=== PATIENT | male | born 1980 | race Caucasian/White ===

== ENCOUNTER 2016-06-30 19:35 | Emergency (ER) | payer SELFPAY ==
[2016-06-30] MEDS ORDERED: KETOROLAC TROMETHAMINE 60 MG/2 ML SDV IM ONE (23:47)
--- NOTE | 2016-07-01 00:14 | ER Document Report ---
ED General - General Chief Complaint: Urinary Problem Stated Complaint: ABDOMINAL PAIN Time Seen by Provider: 06/30/16 23:43 Notes: Patient is a 36-year-old male who presents with complaints of pain and burning whenever he urinates and also pain in the right lower quadrant and suprapubic region of his abdomen. No pain in his testicle region. No history of kidney stones. No abnormal discharge from the penis. Patient is sexually active. No fevers. No vomiting. No diarrhea. No other complaints at this time. TRAVEL OUTSIDE OF THE [place] IN LAST 30 DAYS: No - Related Data Allergies/Adverse Reactions: No Known Allergies Allergy (Verified 12/10/15 20:57) Past Medical History - Social History Smoking Status: Current Every Day Smoker Chew tobacco use (# tins/day): No Frequency of alcohol use: Social Drug Abuse: None Family History: Reviewed & Not Pertinent Patient has suicidal ideation: No Patient has homicidal ideation: No Renal/ Medical History: Denies: Hx Peritoneal Dialysis Surgical Hx: Negative - Immunizations Hx Diphtheria, Pertussis, Tetanus Vaccination: Yes - unknown last Review of Systems - Review of Systems Notes: My Normal Review Basic REVIEW OF SYSTEMS: CONSTITUTIONAL : Denies fever, chills, or sweats. Denies recent illness. RESPIRATORY: Denies cough, cold, or chest congestion. Denies shortness of breath, difficulty breathing, or wheezing. GASTROINTESTINAL: RLQ and suprapubic pain with urinating GENITOURINARY: Dysuria MUSCULOSKELETAL: Denies neck or back pain or joint pain or swelling. SKIN: Denies rash or skin lesions. NEUROLOGICAL: Denies altered mental status or loss of consciousness. Denies headache. Denies weakness or paralysis or loss of use of either side. Denies problems with gait or speech. Denies sensory or motor loss. ALL OTHER SYSTEMS REVIEWED AND NEGATIVE. Physical Exam - Vital signs Vitals: Temp Pulse Resp BP Pulse Ox 98.3 F 83 16 110/73 93 06/30/16 19:41 06/30/16 19:41 06/30/16 19:41 06/30/16 19:41 06/30/16 19:41 - Notes Notes: General Appearance: Well nourished, alert, cooperative, no acute distress, moderate obvious discomfort. Vitals: reviewed, See vital signs table. Head: no swelling or tenderness to the head Eyes: PERRL, EOMI, Conjuctiva clear Mouth: No decreasd moisture Lungs: No wheezing, No rales, No rhonci, No accessory muscle use, good air exchange bilaterally. Heart: Normal rate, Regular rythm, No murmur, no rub Abdomen: Normal BS, soft, No rigidity, No reproducible pain to palpation, No guarding, no rebound, no abdominal masses, no organomegaly genital: no redness or swelling to urethral meatus. No discharge from meatus Extremities: strength 5/5 in all extremities, good pulses in all extremities, no swelling or tenderness in the extremities, no edema. Skin: warm, dry, appropriate color, no rash Neuro: speech clear, oriented x 3, normal affect, responds appropriately to questions. Course - Vital Signs Vital signs: Temp Pulse Resp BP Pulse Ox 98.1 F 80 20 118/70 94 06/30/16 23:33 06/30/16 23:33 06/30/16 23:33 06/30/16 23:33 06/30/16 23:33 - Laboratory Laboratory results interpreted by me: 06/30/16 23:35 Urine Protein 30 H Urine Blood MODERATE H Ur Leukocyte Esterase LARGE H Urine Ascorbic Acid 40 H - Transfer of Care Notes: 07/01/16 01:41 Patient has what appears to be urinary tract infection on urinalysis. This is the first 1 is ever had. I informed him of the significant other that if he develops another one in the future he may need referral to urologist. Patient will be given a dose of Rocephin. I did inform him that most urinary tract infections the matter either related sexually transmitted diseases or prostatitis. He really has no pain in the area of his prostate. He adamantly denies any chance of sexually transmitted disease. I informed him that we still treated up front for possible STDs and he is okay with this. I have given him a dose of Rocephin as well as a dose of azithromycin. Will place him on Keflex. I will send his urine for culture. His urine has been sent for gonorrhea and chlamydia but it will take several hours to come back. Patient is understanding of this. I informed him we will call him of his results were positive. Patient encouraged to return to ER if he has fevers, worsening with symptoms, or feels unwell. Patient agrees with plan and will be discharged home. Dictation of this chart was performed using voice recognition software; therefore, there may be some unintended grammatical errors. Discharge - Discharge Clinical Impression: Hematuria UTI (urinary tract infection) Qualifiers: Urinary tract infection type: acute cystitis Hematuria presence: with hematuria Qualified Code(s): N30.01 - Acute cystitis with hematuria Condition: Good Disposition: HOME, SELF-CARE Additional Instructions: URINARY TRACT INFECTION: Your evaluation indicates that you have a urinary tract infection. This is due to germs growing in the bladder. This is a common problem. This infection usually responds quickly to antibiotics. Your antibiotic should be taken exactly as prescribed. Drink plenty of fluids -- three to four quarts a day. Occasionally, a bladder anesthetic will be prescribed to help stop the feeling of urgency until the antibiotic has a chance to clear the infection. This may cause your urine to be dark orange. Certain urine infections require a culture. If the doctor obtained a culture, the results will be back in two days. You should call to see if a change in treatment is needed. A repeat urinalysis after you finish treatment is often recommended. The physician will let you know if further testing is required. Call the doctor if you develop fever, chills, flank pain, inability to urinate, or blood in the urine. ANTIBIOTIC THERAPY: You have been given an antibiotic prescription. It's important that you take all the medication, unless instructed otherwise by your physician. Failure to complete the entire course can result in relapse of your condition. Common side effects of antibiotics include nausea, intestinal cramping, or diarrhea. Women may develop vaginal yeast infections, and babies can get yeast (thrush) in the mouth following the use of antibiotics. Contact your physician if you develop significant side effects from this medication. Allergy to this antibiotic can result in hives, wheezing, faintness, or itching. If symptoms of allergy occur, stop the medication and call the doctor. CEPHALEXIN: The antibiotic you've been prescribed is a member of the cephalosporin class. This type of antibiotic covers a wide variety of infections, including those of the skin, lungs, and urinary tract. It's useful for staph infections. This antibiotic is slightly similar to the penicillin family. In rare cases , a person who is allergic to penicillin will also be allergic to this medication. If you have had a severe allergic reaction to penicillin, and have not taken this antibiotic since that time, notify your doctor. Antibiotics which cover many germs ("broad spectrum" antibiotics) are more likely to cause diarrhea or "yeast" infections. Women prone to vaginal yeast problems may suffer an attack after taking this antibiotic. In infants, oral thrush (white spots "stuck" on the cheek) or yeast diaper rash may result. See your doctor if these problems occur. Call at once if you develop itching, hives , shortness of breath, or lightheadedness. URINARY ANESTHETIC AGENT: You have been given a medication (Pyridium) for urinary tract discomfort. This medicine numbs the lining of the bladder and urethra, resulting in less pain, burning, and urgency. You may take it as needed, according to instructions. When the symptoms resolve, you can stop this medication (be sure to continue any other medications the doctor has given you). This medicine turns the urine a dark orange. It may stain underwear. Occasionally, it can cause nausea. Return for evaluation if there are any unexpected effects, such as itching, hives, or shortness of breath. FOLLOW-UP CARE: If you have been referred to a physician for follow-up care, call the physician s office for an appointment as you were instructed or within the next two days. If you experience worsening or a significant change in your symptoms, notify the physician immediately or return to the Emergency Department at any time for re-evaluation. Please follow up with a doctor in 4 days to have your urine rechecked to make sure it is clearing the infection and blood. You need to be referred to a urologist if you ever have a recurrent urinary tract infection as this is a sign that there is something anatomically wrong such as ureteral reflux. Please return to the ER if you have fevers, vomiting or feel that your symptoms are not improving after 3 days. Prescriptions: Cephalexin Monohydrate [Keflex 500 mg Capsule] 500 mg PO BID #20 capsule Phenazopyridine HCl [Pyridium 200 mg Tablet] 200 mg PO TID #15 tablet Forms: Return to Work
[2016-07-01 00:26] LABS: APPEARANCE,URINE CLOUDY; BILIRUBIN,URINE NEGATIVE (NEGATIVE); GLUCOSE, URINE NEGATIVE (NEGATIVE); KETONES,URINE NEGATIVE (NEGATIVE); LEUKOCYTE ESTERASE,URINE LARGE (NEGATIVE); NITRITE,URINE NEGATIVE (NEGATIVE); PROTEIN,URINE 30 mg/dL (NEGATIVE); URINE SPECIFIC GRAVITY 1.023; UROBILINOGEN,URINE NEGATIVE mg/dL (<2.0)
[2016-07-01 01:31] LABS: CHLAM PCR NOT DETECTED (NOT DETECT)
[2016-07-01] MEDS ORDERED: LIDOCAINE 1% INJ-PF (10 MG/ML) 30 ML SDV INFIL ONE (01:34)
[2016-07-01] MEDS ORDERED: CEFTRIAXONE INJ 1000 MG VIAL IM ONE (01:34)
[2016-07-01] MEDS ORDERED: PHENAZOPYRIDINE HCL 200 MG TABLET PO ONE (01:34)
[2016-07-01] MEDS ORDERED: AZITHROMYCIN 250 MG TABLET PO ONE (01:35)
[2016-07-01 02:42] VITALS: BP 117/74
== END 2016-07-01 02:36 | disposition home or self-care (01) ==
LOC: ER 19:35
DX: N30.01 Acute cystitis with hematuria (principal); R10.31 Right lower quadrant pain; F17.200 Nicotine dependence, unspecified, uncomplicated
CPT/HCPCS: 99284; 96372; 81001; 87491; 87591; 76380; J1885; J3490 ×2; J0696

== ENCOUNTER 2016-10-26 14:19 | Emergency (ER) | payer SELFPAY ==
--- NOTE | 2016-10-26 14:48 | ER Document Report ---
ED General - General Chief Complaint: Foot Pain Stated Complaint: RIGHT FOOT INJURY Time Seen by Provider: 10/26/16 14:46 Mode of Arrival: Wheelchair Information source: Patient Notes: Patient is a 36 year old male who presents with right foot pain and swelling that started last night. He states he was lifting weights and the rope that the 35# weight was on broke causing the weight to drop on his foot. He was not wearing shoes. He tried to ambulate on this foot at home but states the pain and swelling worsened overnight. He has not taken any medication for this. Endorses associated ecchymosis but denies any numbness or tingling. TRAVEL OUTSIDE OF THE [place] IN LAST 30 DAYS: No - Related Data Allergies/Adverse Reactions: No Known Allergies Allergy (Verified 10/26/16 14:31) Past Medical History - General Information source: Patient - Social History Smoking Status: Current Every Day Smoker Frequency of alcohol use: None Drug Abuse: None Family History: Reviewed & Not Pertinent Renal/ Medical History: Denies: Hx Peritoneal Dialysis - Immunizations Hx Diphtheria, Pertussis, Tetanus Vaccination: Yes - unknown last Review of Systems - Review of Systems Constitutional: No symptoms reported EENT: No symptoms reported Cardiovascular: No symptoms reported Respiratory: No symptoms reported Gastrointestinal: No symptoms reported Genitourinary: No symptoms reported Male Genitourinary: No symptoms reported Musculoskeletal: See HPI Skin: No symptoms reported Hematologic/Lymphatic: No symptoms reported Neurological/Psychological: No symptoms reported Physical Exam - Vital signs Vitals: Temp Pulse Resp BP Pulse Ox 98.7 F 82 18 122/73 96 10/26/16 14:30 10/26/16 14:30 10/26/16 14:30 10/26/16 14:30 10/26/16 14:30 - Notes Notes: PHYSICAL EXAM: CONSTITUTIONAL: Alert and oriented, well-appearing and in no acute distress. HENT: Normocephalic, atraumatic. Moist mucous membranes. EYES: Pupils equal round and reactive to light, EOM intact. Sclera anicteric, conjunctiva are normal. No entrapment. HEART: Regular rate and rhythm without murmurs. LUNGS: CTAB and equal. No wheezes, rales or rhonchi. EXTREMITIES: right foot - tender to palpation over proximal dorsal surface with localized edema and ecchymosis, ROM of ankle and toes intact. No pitting edema. No cyanosis. Cap Refill <3 seconds. distal pulses intact. NEURO: Cranial nerves grossly intact. Normal sensory/motor exams. PSYCH: Normal mood, normal affect. SKIN: Warm and dry. Normal turgor. No rashes or lesions noted. Course - Re-evaluation Re-evalutation: 10/26/16 14:48 Patient seen and examined. Will order xrays and give PO pain medication. 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 Discussed results with patient. At this time, will discharge with return precautions and follow-up recommendations. Verbal discharge instructions given at the bedside and opportunity for questions given. Medication warnings reviewed. Patient is in agreement with this plan and has verbalized understanding of return precautions and the need for primary care follow-up in the next 24-72 hours. - Vital Signs Vital signs: Temp Pulse Resp BP Pulse Ox 98.7 F 82 18 122/73 96 10/26/16 14:30 10/26/16 14:30 10/26/16 14:30 10/26/16 14:30 10/26/16 14:30 - Diagnostic Test Radiology reviewed: Image reviewed, Reports reviewed Discharge - Discharge Clinical Impression: Contusion of right foot, initial encounter Condition: Stable Disposition: HOME, SELF-CARE Additional Instructions: Contusion Your injury has resulted in a contusion -- a crushing of the deep tissues. No injury to important structures was detected during the physician's exam. Contusions vary in the amount of pain they cause, and in the length of time required for healing. Typically, the area will become bruised, and will remain painful to touch for two or three weeks. However, most patients are back to working and playing within a few days. After the initial period of rest and cold-packs, your symptoms (together with the doctor's recommendations) will determine how rapidly you can get back to full activity. Usually this means "do what feels okay, but don't do things that hurt." If re-examination was recommended, it's important to follow up as instructed. Call the doctor or return any time if pain increases, if swelling becomes severe, if you develop numbness or weakness in an injured extremity, or if any other alarming symptoms occur. Take medication as directed. Alternate ice/heat as needed for swelling. Prescriptions: Naproxen [Naprosyn 250 mg Tablet] 250 mg PO BID #20 tablet Forms: Return to Work
[2016-10-26] MEDS ORDERED: NAPROXEN 375 MG TABLET PO ONE (15:12)
--- NOTE | 2016-10-26 15:56 | RADIOLOGY REPORT (SQ) ---
EXAM DESCRIPTION: FOOT RIGHT COMPLETE COMPLETED DATE/TIME: 10/26/2016 3:29 pm REASON FOR STUDY: pain, dropped 35# weight COMPARISON: Right foot films 03/17/2007, 07/04/2007, 02/18/2011, 03/03/2011 NUMBER OF VIEWS: Three views. TECHNIQUE: AP, lateral and oblique radiographic images acquired of the right foot. LIMITATIONS: None. FINDINGS: MINERALIZATION: Normal. 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 No bony bridging ca llus. No altered bony density worrisome for avascular necrosis of the fracture fragment. Remainder of the bones of the right foot are otherwise unremarkable JOINTS: Hallux valgus deformity great toe. Mild bony spurring along the dorsal aspect 2nd tarsometat arsal joint SOFT TISSUES: No soft tissue swelling. No foreign body. OTHER: No other significant finding. 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 Initial injury 07/04/2007. TECHNICAL DOCUMENTATION: JOB ID: [id number] [employer]- All Rights Reserved
[2016-10-26 16:33] VITALS: BP 132/56
== END 2016-10-26 16:34 | disposition home or self-care (01) ==
LOC: ER 14:19
DX: S90.31XA Contusion of right foot, initial encounter (principal); F17.200 Nicotine dependence, unspecified, uncomplicated; W20.8XXA Other cause of strike by thrown, projected or falling object, initial encounter; Y93.B3 Activity, free weights
CPT/HCPCS: 99283; 73630; J3490

== ENCOUNTER 2017-05-13 18:56 | Observation (INO) | payer SELFPAY ==
[2017-05-13] MEDS ORDERED: ONDANSETRON HCL INJ/PF 4 MG/2 ML SDV IV ONE (20:09)
[2017-05-13] MEDS ORDERED: NORMAL SALINE 1000 ML 1,000 ML IV ONE (20:09)
[2017-05-13] MEDS ORDERED: KETOROLAC TROMETHAMINE INJ/PF 30 MG/1 ML SDV IV ONE (20:09)
--- NOTE | 2017-05-13 20:36 | ER Document Report ---
ED General - General Chief Complaint: Abdominal Pain Stated Complaint: STOMACH PAIN Time Seen by Provider: 05/13/17 20:04 Notes: Patient is a 37 year old male without past medical history who presents with 4- 5 hours of severe, stabbing, constant upper abdominal pain with associated nausea. Patient states that the symptoms started shortly after eating Easter ham. Have been unchanged since that time. He states he has tried over-the- counter antacids without any improvement. Any attempt at drinking or eating worsens the pain. Patient reports that he has intermittently had mild symptoms similar to this in the past over the past 1 year since being diagnosed with gallstones. However he states he has never had pain or nausea to this degree of intensity. He has not seen his primary care doctor regarding today's concerns. He denies any fever or constitutional symptoms. No dysuria or lower abdominal pain. No chest pain or shortness of breath. TRAVEL OUTSIDE OF THE [place] IN LAST 30 DAYS: No - Related Data Allergies/Adverse Reactions: No Known Allergies Allergy (Verified 05/13/17 18:56) Past Medical History - General Information source: Patient - Social History Smoking Status: Current Every Day Smoker Chew tobacco use (# tins/day): No Frequency of alcohol use: Rare Drug Abuse: Marijuana Lives with: Spouse/Significant other Family History: Reviewed & Not Pertinent Patient has suicidal ideation: No Patient has homicidal ideation: No Renal/ Medical History: Denies: Hx Peritoneal Dialysis - Immunizations Hx Diphtheria, Pertussis, Tetanus Vaccination: Yes - unknown last Review of Systems - Review of Systems Notes: Constitutional: Negative for fever. HENT: Negative for sore throat. Eyes: Negative for visual changes. Cardiovascular: Negative for chest pain. Respiratory: Negative for shortness of breath. Gastrointestinal: Positive for abdominal pain and nausea Genitourinary: Negative for dysuria. Musculoskeletal: Negative for back pain. Skin: Negative for rash. Neurological: Negative for headaches, weakness or numbness. 10 point ROS negative except as marked above and in HPI. Physical Exam - Vital signs Vitals: Temp Pulse Resp BP Pulse Ox 98.2 F 55 L 16 133/74 H 97 05/13/17 19:19 05/13/17 19:19 05/13/17 19:19 05/13/17 19:19 05/13/17 19:19 Interpretation: Bradycardic Notes: PHYSICAL EXAMINATION: GENERAL: Appears moderately uncomfortable but no acute distress HEAD: Atraumatic, normocephalic. EYES: Pupils equal round and reactive to light, extraocular movements intact, sclera anicteric, conjunctiva are normal. ENT: nares patent, oropharynx clear without exudates. Moist mucous membranes. NECK: Normal range of motion, supple without lymphadenopathy LUNGS: Breath sounds clear to auscultation bilaterally and equal. No wheezes rales or rhonchi. HEART: Regular rate and rhythm without murmurs ABDOMEN: Soft, focal tenderness the right upper quadrant with positive Mckeon sign. Mild epigastric abdominal tenderness. No additional areas of localized tenderness. EXTREMITIES: Normal range of motion, no pitting or edema. No cyanosis. NEUROLOGICAL: No focal neurological deficits. Moves all extremities spontaneously and on command. PSYCH: Normal mood, normal affect. SKIN: Warm, Dry, normal turgor, no rashes or lesions noted. Course - Re-evaluation Re-evalutation: 05/13/17 20:35 Patient presents with epigastric and right upper quadrant abdominal pain with associated nausea but no vomiting. He has intermittently had similar symptoms over the past 1 year and was diagnosed with gallstones without evidence of acute cholecystitis approximately 1 year ago. On abdominal examination the patient has a positive Mckeon sign at the bedside and focal tenderness to the epigastrium as well. Differential diagnosis includes symptomatic lithiasis, acute cholecystitis, pancreatitis, acute hepatitis, or gastritis versus duodenitis. Will proceed with right upper quadrant ultrasound, labs, analgesic support, IV fluids and reassess patient after completion of the labs and imaging study. 05/13/17 22:41 Right upper quadrant ultrasound is consistent with acute cholecystitis which is my primary diagnostic concern. Labs otherwise unremarkable. I discussed with Dr. Quezada the surgeon control operator who has agreed to evaluate the patient. - Vital Signs Vital signs: Temp Pulse Resp BP Pulse Ox 97.4 F 51 L 16 98/45 L 97 05/14/17 03:51 05/14/17 03:51 05/14/17 03:51 05/14/17 03:51 05/14/17 03:51 - Laboratory Result Diagrams: 05/13/17 20:45 05/13/17 20:45 Laboratory results interpreted by me: 05/13/17 20:45 Carbon Dioxide 31 H Total Protein 6.0 L - Diagnostic Test Radiology reviewed: Reports reviewed Discharge - Discharge Clinical Impression: Acute cholecystitis Condition: Good Disposition: ADMITTED OBSERVATION Admitting Provider: Surgicalist Unit Admitted: Surgical Floor
[2017-05-13 21:07] LABS: ABSOLUTE EOSINOPHILS # (AUTO) 0.4 10^3/uL (0.0-0.6); ABSOLUTE LYMPHOCYTES (AUTO) 2.8 10^3/uL (0.5-4.7); ABSOLUTE MONOCYTES (AUTO) 0.7 10^3/uL (0.1-1.4); ABSOLUTE NEUT (AUTO) 6.1 10^3/uL (1.7-8.2); BASOPHILS % (AUTO) 0.5 % (0-2); EOSINOPHILS % (AUTO) 3.5 % (0-6); HEMATOCRIT 44.4 % (37.9-51.0); MEAN CORPUSCULAR HEMOGLOBIN 31.3 pg (27.0-33.4); MEAN CORPUSCULAR HGB CONC 33.7 g/dL (32.0-36.0); MEAN CORPUSCULAR VOLUME 93 fl (80-97); MONOCYTES % (AUTO) 6.8 % (3-13); PLATELET COUNT 257 10^3/uL (150-450); RED BLOOD COUNT 4.79 10^6/uL (4.35-5.55); RED CELL DISTRIBUTION WIDTH 13.5 % (11.5-14.0); SEGMENTED NEUTROPHILS % (AUTO) 61.2 % (42-78); TOTAL CELLS COUNTED % (AUTO) 100 %
[2017-05-13 21:17] LABS: ALANINE AMINOTRANSFERASE 44 U/L (21-72); ALBUMIN 4.2 g/dL (3.5-5.0); ALKALINE PHOSPHATASE 67 U/L (38-126); ANION GAP 8 (5-19); ASPARTATE AMINO TRANSFERASE 46 U/L (17-59); BILIRUBIN,DIRECT 0.2 mg/dL (0.0-0.4); BILIRUBIN,TOTAL 0.2 mg/dL (0.2-1.3); BLOOD UREA NITROGEN 16 mg/dL (7-20); CARBON DIOXIDE 31 mmol/L (22-30); CHLORIDE 103 mmol/L (98-107); GLUCOSE 94 mg/dL (75-110); LIPASE 83.6 U/L (23-300); POTASSIUM 4.9 mmol/L (3.6-5.0); SODIUM 141.8 mmol/L (137-145)
--- NOTE | 2017-05-13 21:20 | RADIOLOGY REPORT (SQ) ---
EXAM DESCRIPTION: U/S ABDOMEN LIMITED W/O DOP COMPLETED DATE/TIME: 05/13/2017 9:09 pm REASON FOR STUDY: upper abdominal pain COMPARISON: None. TECHNIQUE: Dynamic and static grayscale images acquired of the right upper quadrant and recorded on PACS. Additional selected color Doppler and spectral images recorded. LIMITATIONS: Study limited due to acoustical interference from fat or from air in the bowel. FINDINGS: PANCREAS: Obscured. LIVER: No masses. Echotexture normal. LIVER VASCULATURE: Normal directional flow of the main portal vein and hepatic veins. GALLBLADDER: Gallstones. Mild gallbladder wall thickening. ULTRASOUND-DETECTED KILGORE'S SIGN: Positive. INTRAHEPATIC DUCTS AND COMMON DUCT: CBD and intrahepatic ducts normal caliber. No filling defects. INFERIOR VENA CAVA: Normal flow. AORTA: No aneurysm. RIGHT KIDNEY: Normal size. Normal echogenicity. No solid or suspicious masses. No hydronephrosis. No calcifications. PERITONEAL CAVITY AND RIGHT PLEURAL SPACE: No ascites or effusions. OTHER: No other significant finding. IMPRESSION: GALLSTONES. MILD GALLBLADDER WALL THICKENING. REPORTED POSITIVE KILGORE SIGN. NO BILIA RY DILATION PER TECHNICAL DOCUMENTATION: JOB ID: [id number] [employer]- All Rights Reserved Reading location - IP/workstation name: [email or web address]
[2017-05-13 21:50] LABS: AMORPHOUS SEDIMENT,URINE TRACE /HPF
[2017-05-13 22:06] LABS: APPEARANCE,URINE CLEAR; BILIRUBIN,URINE NEGATIVE (NEGATIVE); COLOR,URINE STRAW; GLUCOSE, URINE NEGATIVE (NEGATIVE); KETONES,URINE NEGATIVE (NEGATIVE); PROTEIN,URINE NEGATIVE (NEGATIVE); URINE SPECIFIC GRAVITY 1.022
[2017-05-13 22:07] LABS: LEUKOCYTE ESTERASE,URINE NEGATIVE (NEGATIVE); NITRITE,URINE NEGATIVE (NEGATIVE); UROBILINOGEN,URINE NEGATIVE mg/dL (<2.0)
[2017-05-13] MEDS: MORPHINE SULFATE 10 MG/ML INJ IV PRN (22:18)
[2017-05-13] MEDS ORDERED: RINGERS SOLUTION,LACTATED 1,000 ML IV PRN (22:42)
[2017-05-13] MEDS ORDERED: NICOTINE 21 MG/24 HR PATCH.TD24 TD PRN (23:44)
[2017-05-14] MEDS ORDERED: INFLUENZA ADLT QUAD (36MOS+) 2017-18 VAC 0.5 ML SYR IM PRN (02:31)
[2017-05-14] MEDS: KETOROLAC TROMETHAMINE INJ/PF 30 MG/1 ML SDV IV PRN (02:36)
[2017-05-14] MEDS: CEFAZOLIN 1 GM/D5W RTU 1 GM/50 ML RTUPB IV SCH ×3 (06:26→18:46)
--- NOTE | 2017-05-14 06:54 | HISTORY AND PHYSICAL E ---
History and Physical NAME: JOSELYN RANKIN : 1980 AGE: 37Y ADMITTED: 05/13/2017 ROOM: 208 Patient seen at the request of Dr. Fenton CHIEF COMPLAINT: Gallstones. HISTORY OF PRESENT ILLNESS: The patient is a 37-year-old white male, previously healthy, with a known history of gallstones diagnosed over 1 year ago at [place], [place]. The patient was advised to undergo operative intervention, but he declined. Early on afternoon, he was cooking ham, had a slice of ham, and developed acute abdominal pain, right upper quadrant nausea. He presented to the emergency department complaining of abdominal pain. He was worked up by gallbladder ultrasound, which showed cholelithiasis, and gallbladder thickened wall. Surgery was consulted and he was advised admission. PAST MEDICAL HISTORY: None. PAST SURGICAL HISTORY: None. ALLERGIES: None. MEDICATIONS: None. FAMILY HISTORY: Noncontributory. SOCIAL HISTORY: The patient does smoke. REVIEW OF SYSTEMS: CONSTITUTIONAL: The patient denies. CARDIOVASCULAR: The patient denies. MUSCULOSKELETAL: The patient denies. Remainder of the review of systems unremarkable. PHYSICAL EXAMINATION: GENERAL: Patient examined in the emergency department, no acute distress. HEENT: Head normocephalic, atraumatic. Eyes without icterus. NECK: No adenopathy. LUNGS: Clear to auscultation bilaterally. NEUROLOGIC: Grossly intact in upper and lower extremities. ABDOMEN: Soft, minimally tender in the right upper quadrant. No peritoneal signs. Remainder of examination is unremarkable. LABORATORY PROFILE: CBC within normal limits. Electrolytes essentially within normal limits. Urinalysis unremarkable. Gallbladder ultrasound shows multiple gallstones, with thickening of the gallbladder wall. The common duct was interpreted as normal caliber. No other pathologic findings. IMPRESSION: 1. Symptomatic cholelithiasis with cholecystitis. 2. Smoker. RECOMMENDATIONS: The patient will be admitted, kept n.p.o. on IV fluids, and set up for interval laparoscopic cholecystectomy by Dr. Brand in the morning. Risks, benefits, and alternatives to the procedure were briefly reviewed with the patient. DICTATING PHYSICIAN: CHETAN HIRSCH M.D. [id number] PHY#: [id number] ID: [id number] JOB#: [id number] ACCT: [id number] cc:Belia APARICIO MD
[2017-05-14] MEDS: MORPHINE SULFATE 10 MG/ML INJ IV PRN ×3 (08:15→23:20)
[2017-05-14] MEDS ORDERED: FENTANYL CITRATE INJ/PF 100 MCG/2 ML AMPUL ONE ×2 (11:57→14:34)
[2017-05-14] MEDS ORDERED: MIDAZOLAM 2 MG/2 ML INJ ONE (11:57)
[2017-05-14] MEDS ORDERED: ACETAMINOPHEN 100 ML IV ONE (11:58)
[2017-05-14] MEDS ORDERED: PROPOFOL INJ 200 MG/20 ML VIAL IV ONE (11:58)
[2017-05-14] MEDS ORDERED: BUPIVACAINE HCL 0.25 % INJ/PF (2.5 MG/1 ML) 30 ML VIAL ONE (12:16)
[2017-05-14] MEDS ORDERED: MEPERIDINE HCL/PF INJ 25 MG/1 ML DISP.SYRIN IV PRN (13:33)
[2017-05-14] MEDS ORDERED: OXYCODONE-ACETAMINOPHEN 5-325 MG TABLET PO PRN ×2 (13:33)
[2017-05-14] MEDS ORDERED: FENTANYL CITRATE INJ/PF 100 MCG/2 ML AMPUL IV PRN ×3 (13:33)
[2017-05-14] MEDS ORDERED: DIPHENHYDRAMINE HCL 50 MG/ML VIAL IV PRN (13:33)
[2017-05-14] MEDS ORDERED: PROMETHAZINE HCL INJ 25 MG/1 ML VIAL IV PRN ×2 (13:33)
[2017-05-14] MEDS ORDERED: MORPHINE SULFATE 10 MG/ML INJ IV PRN (13:33)
[2017-05-14] MEDS ORDERED: LIDOCAINE 2% INJ-PF (20 MG/ML) 2 ML AMPUL ONE (14:52)
[2017-05-14] MEDS ORDERED: GLYCOPYRROLATE INJ 0.4 MG/2 ML VIAL ONE (14:52)
[2017-05-14] MEDS ORDERED: VECURONIUM BROMIDE INJ 10 MG VIAL IV ONE (14:52)
[2017-05-14] MEDS ORDERED: ONDANSETRON HCL INJ/PF 4 MG/2 ML SDV ONE (14:52)
[2017-05-14] MEDS ORDERED: DEXAMETHASONE SOD PHOSPHATE INJ 4 MG/1 ML VIAL ONE (14:52)
[2017-05-14] MEDS ORDERED: NEOSTIGMINE METHYLSULFATE 10 MG/10 ML VIAL ONE (14:52)
[2017-05-14] MEDS ORDERED: SUCCINYLCHOLINE CHLORIDE INJ 200 MG/10 ML VIAL ONE (14:52)
[2017-05-14] MEDS ORDERED: METOCLOPRAMIDE HCL INJ/PF 10 MG/2 ML SDV ONE (15:32)
[2017-05-14] MEDS ORDERED: OXYCODONE-ACETAMINOPHEN 5-325 MG TABLET ONE (15:32)
[2017-05-14] MEDS ORDERED: NORMAL SALINE 1000 ML 1,000 ML IV PRN (15:50)
[2017-05-14] MEDS ORDERED: KETOROLAC TROMETHAMINE INJ/PF 30 MG/1 ML SDV ONE (16:01)
--- NOTE | 2017-05-14 16:29 | OPERATIVE REPORT E ---
Operative Report NAME: JOSELYN RANKIN : 1980 AGE: 37Y DATE OF SURGERY: 05/14/2017 ROOM: 208 PREOPERATIVE DIAGNOSIS: ACUTE ON CHRONIC CALCULOUS CHOLECYSTITIS. POSTOPERATIVE DIAGNOSIS: ACUTE ON CHRONIC CALCULOUS CHOLECYSTITIS. OPERATION: Laparoscopic cholecystectomy. SURGEON: SAGE LOPEZ M.D. ANESTHESIA: General. INDICATION: This is a 37-year-old male with known gallstones. He came in with severe right upper quadrant pains associated with nausea and ultrasound revealed gallstones and inflammation of the gallbladder wall. DESCRIPTION OF PROCEDURE: After adequate general anesthesia, the patient was placed in the supine position and the abdomen prepped and draped in the usual sterile fashion. An appropriate time-out was called. An infraumbilical elliptical incision was made and the fascia identified and grasped with Christine clamps and divided within the Christine clamps. The fascia was then punctured with a Kitty clamp and dilated enough to be able to place a Liudmila trocar into the abdominal cavity. CO2 insufflated through the trocar site to a pressure of 15 mmHg. Three added trocars were placed. A 12 mm in the subxiphoid and two 5 mm in the right upper quadrant under direct vision. Next, the gallbladder was identified and noted to be thickened with mild edema. There was an adhesion of the omentum and this was bluntly lysed. The infundibulum was then grasped, clamped, and the cystic duct dissected. The cystic duct and cystic artery were then identified and after establishing the critical view, the cystic duct was then clipped with 2 clips on the proximal side and 1 clip towards the gallbladder side. It was then divided between the 2 clips closer to the gallbladder. The cystic artery was subsequently clipped and divided with Harmonic cara. The gallbladder was then taken off the liver bed with the use of the Harmonic cara. There was a small amount of leak from the gallbladder and bilious material noted. The grasper was then placed to control the leak and further completion of the dissection of the gallbladder was then performed with the use of the Harmonic cara. The gallbladder was then placed in an Endobag and pulled out through the umbilical port. There were stones noted in the gallbladder. Next, the liver bed was then inspected and irrigated, and no evidence of active bleeding noted. The small amount of gallbladder leak was then irrigated with saline using 2 L then suctioned out. Visual examination of the abdominal cavity was then performed and no evidence of any abnormality. The trocars were removed and no evidence of active bleeding along the trocar sites. The Garcia fascial defect was then closed with a elkthn-ui-wtxhy suture using #0 Vicryl. All the skin incisions were then closed with running subcuticular 4-0 Monocryl. Sterile Dermabond was used as dressing. The patient tolerated the procedure well. Needle, instrument, and sponge counts were all correct. Estimated blood loss was 10 mL. The patient then brought to the recovery room in satisfactory condition. DICTATING PHYSICIAN: SAGE LOPEZ M.D. [id number] PHY#: [id number] ID: [id number] JOB#: [id number] ACCT: [id number] cc:SAGE LOPEZ M.D. > MTDD
[2017-05-14] MEDS ORDERED: KETOROLAC TROMETHAMINE INJ/PF 30 MG/1 ML SDV INJ ONE (16:30)
[2017-05-14] MEDS: OXYCODONE-ACETAMINOPHEN 5-325 MG TABLET PO PRN (20:37)
[2017-05-15] MEDS: KETOROLAC TROMETHAMINE INJ/PF 30 MG/1 ML SDV IV PRN ×2 (00:39→06:44)
[2017-05-15] MEDS: CEFAZOLIN 1 GM/D5W RTU 1 GM/50 ML RTUPB IV SCH ×2 (02:29→09:29)
[2017-05-15] MEDS: OXYCODONE-ACETAMINOPHEN 5-325 MG TABLET PO PRN (03:49)
[2017-05-15 12:11] VITALS: BP 110/53
== END 2017-05-15 13:58 | disposition home or self-care (01) ==
LOC: ER 18:56 → EH 23:07 → 2N 05-14 01:27
PROVIDERS: ATTEND Surgery
PROC: 0FT44ZZ Resection of Gallbladder, Percutaneous Endoscopic Approach (ICD-10-PCS; principal; 2017-05-13)
DX: K80.10 Calculus of gallbladder with chronic cholecystitis without obstruction (principal); F17.200 Nicotine dependence, unspecified, uncomplicated
CPT/HCPCS: 99285; 96361; 96375; 96365; 36415; 83690; 85025; 80053; 81001; 88304 ×2; 76705; 47562; G0378 ×4; J2250; J0690 ×2; J1100; J3010; J3490 ×2; J1885 ×3; J2765; J2270 ×2; J0330; J2405 ×2; J7030 ×2; J7120; J2704; J0131; 790

== ENCOUNTER 2017-11-23 14:23 | Emergency (ER) | payer SELFPAY ==
[2017-11-23] MEDS ORDERED: KETOROLAC TROMETHAMINE 60 MG/2 ML SDV IM ONE (15:28)
--- NOTE | 2017-11-23 15:29 | ER Document Report ---
ED Medical Screen (RME) - General Chief Complaint: Flank Pain Stated Complaint: BACK PAIN Time Seen by Provider: 11/23/17 15:27 Mode of Arrival: Ambulatory Information source: Patient TRAVEL OUTSIDE OF THE [place] IN LAST 30 DAYS: No - HPI Patient complains to provider of: R flank pain Onset: Yesterday - pt with onset of R flank pain which has worsened today. - Related Data Allergies/Adverse Reactions: No Known Allergies Allergy (Verified 11/23/17 14:32) Past Medical History - Social History Chew tobacco use (# tins/day): No Frequency of alcohol use: None Drug Abuse: None Renal/ Medical History: Denies: Hx Peritoneal Dialysis Past Surgical History: Reports: Hx Cholecystectomy - Immunizations Hx Diphtheria, Pertussis, Tetanus Vaccination: Yes - unknown last History of Influenza Vaccine for 11/2016 - 04/2017 Season: No Physical Exam - Vital signs Vitals: Temp Pulse Resp BP Pulse Ox 98.6 F 70 18 141/92 H 97 11/23/17 14:51 11/23/17 14:51 11/23/17 14:51 11/23/17 14:51 11/23/17 14:51 Course - Vital Signs Vital signs: Temp Pulse Resp BP Pulse Ox 98.6 F 70 18 141/92 H 97 11/23/17 14:51 11/23/17 14:51 11/23/17 14:51 11/23/17 14:51 11/23/17 14:51
[2017-11-23 16:09] LABS: ABSOLUTE EOSINOPHILS # (AUTO) 0.2 10^3/uL (0.0-0.6); ABSOLUTE LYMPHOCYTES (AUTO) 1.6 10^3/uL (0.5-4.7); ABSOLUTE MONOCYTES (AUTO) 0.8 10^3/uL (0.1-1.4); ABSOLUTE NEUT (AUTO) 8.9 10^3/uL (1.7-8.2); BASOPHILS % (AUTO) 0.3 % (0-2); HEMATOCRIT 42.4 % (37.9-51.0); HEMOGLOBIN 14.5 g/dL (13.5-17.0); LYMPHOCYTES % (AUTO) 13.9 % (13-45); MEAN CORPUSCULAR HEMOGLOBIN 31.4 pg (27.0-33.4); MEAN CORPUSCULAR HGB CONC 34.2 g/dL (32.0-36.0); MEAN CORPUSCULAR VOLUME 92 fl (80-97); MONOCYTES % (AUTO) 6.6 % (3-13); PLATELET COUNT 255 10^3/uL (150-450); RED BLOOD COUNT 4.61 10^6/uL (4.35-5.55); RED CELL DISTRIBUTION WIDTH 12.9 % (11.5-14.0); SEGMENTED NEUTROPHILS % (AUTO) 77.2 % (42-78); TOTAL CELLS COUNTED % (AUTO) 100 %; WHITE BLOOD COUNT 11.5 10^3/uL (4.0-10.5)
[2017-11-23 16:14] LABS: APPEARANCE,URINE CLOUDY; BILIRUBIN,URINE NEGATIVE (NEGATIVE); COLOR,URINE STRAW; GLUCOSE, URINE NEGATIVE (NEGATIVE); KETONES,URINE NEGATIVE (NEGATIVE); LEUKOCYTE ESTERASE,URINE NEGATIVE (NEGATIVE); NITRITE,URINE NEGATIVE (NEGATIVE); PROTEIN,URINE >=500 mg/dL (NEGATIVE); UROBILINOGEN,URINE NEGATIVE mg/dL (<2.0)
[2017-11-23 16:28] LABS: ALANINE AMINOTRANSFERASE 32 U/L (21-72); ALBUMIN 4.5 g/dL (3.5-5.0); ALKALINE PHOSPHATASE 71 U/L (38-126); ANION GAP 9 (5-19); ASPARTATE AMINO TRANSFERASE 30 U/L (17-59); BILIRUBIN,DIRECT 0.2 mg/dL (0.0-0.4); BILIRUBIN,TOTAL 0.7 mg/dL (0.2-1.3); BLOOD UREA NITROGEN 14 mg/dL (7-20); CARBON DIOXIDE 26 mmol/L (22-30); CHLORIDE 107 mmol/L (98-107); GLUCOSE 104 mg/dL (75-110); POTASSIUM 4.1 mmol/L (3.6-5.0); SODIUM 142.1 mmol/L (137-145); TOTAL PROTEIN 7.1 g/dL (6.3-8.2)
--- NOTE | 2017-11-23 16:31 | RADIOLOGY REPORT (SQ) ---
EXAM DESCRIPTION: CT LTD RENAL STONE PROTOCOL ON COMPLETED DATE/TIME: 11/23/2017 4:07 pm REASON FOR STUDY: R flank pain COMPARISON: June 2016 TECHNIQUE: CT scan of the abdomen and pelvis performed without intravenous or oral contrast. Images reviewed with lung, soft tissue, and bone windows. Reconstructed coronal and sagittal MPR images revi ewed. All images stored on PACS. All CT scanners at this facility use dose modulation, iterative reconstruction, and/or weight based d osing when appropriate to reduce radiation dose to as low as reasonably achievable (ALARA). [facility]: Dose Right [facility]: CareDose [facility]: Dose Right [facility]: Teradose 4D [facility]: [employer] RADIATION DOSE: CT Rad equipment meets quality standard of care and radiation dose reduction techniq ues were employed. CTDIvol: 8.8 mGy. DLP: 480 mGy-cm.mGy. LIMITATIONS: None. FINDINGS: LOWER CHEST: No significant findings. No nodules or infiltrates. NON-CONTRASTED LIVER, SPLEEN, ADRENALS: Evaluation limited by lack of IV contrast. No identified sign ificant masses. PANCREAS: No masses. No peripancreatic inflammatory changes. GALLBLADDER: Status post cholecystectomy RIGHT KIDNEY AND URETER: No suspicious masses. Assessment limited by lack of IV contrast. No renal calculi are identified. A tiny obstructing calculus is identified at the level of the uterovesical j unction. There is hydronephrosis of the right kidney and mild dilatation of the right ureter to the level of the obstructing calculus. LEFT KIDNEY AND URETER: No suspicious masses. Assessment limited by lack of IV contrast. No signifi cant calcifications. No hydronephrosis or hydroureter. AORTA AND RETROPERITONEUM: No aneurysm. No retroperitoneal masses or adenopathy. BOWEL AND PERITONEAL CAVITY: No obvious masses or inflammatory changes. No free fluid. APPENDIX: Normal. PELVIS, BLADDER, AND ABDOMINAL WALL:No abnormal masses. No free fluid. Bladder normal. BONES: No significant findings. OTHER: No other significant finding. IMPRESSION: Tiny obstructing calculus at the level of the uterovesical junction on the right. Other findings as noted above COMMENT: Quality ID # [id number]: Final reports with documentation of one or more dose reduction techniques (e.g., Automated exposure control, adjustment of the mA and/or kV according to patient size, use of iterative reconstruction technique) TECHNICAL DOCUMENTATION: JOB ID: [id number] [employer]- All Rights Reserved Reading location - IP/workstation name: [email or web address]
[2017-11-23 20:10] VITALS: BP 117/71
[2017-11-23] MEDS ORDERED: MORPHINE SULFATE IR 15 MG TABLET PO ONE (20:16)
[2017-11-23] MEDS ORDERED: ACETAMINOPHEN 325 MG TABLET PO ONE (20:16)
[2017-11-23] MEDS ORDERED: TAMSULOSIN HCL 0.4 MG CAP.SR.24H PO ONE (20:16)
[2017-11-23] MEDS ORDERED: ONDANSETRON ODT 4 MG TAB (6 TAB/ER DISP) PO PRN (20:17)
--- NOTE | 2017-11-23 20:17 | ER Document Report ---
ED General - General Chief Complaint: Flank Pain Stated Complaint: BACK PAIN Time Seen by Provider: 11/23/17 15:27 Mode of Arrival: Ambulatory Notes: Patient is a 37-year-old male without chronic medical problems who presents with several hours of right flank pain rating into his right lower abdomen and groin. The patient states that the symptoms started abruptly, have overall resolved since that time since receiving ketorolac IM in triage. States when the pain was present it was a severe, stabbing, constant pain. No obvious trigger or worsening factor for the pain. He denies a history of similar symptoms in the past. He denies fever or constitutional symptoms. He has not seen his general doctor regarding today's concerns. TRAVEL OUTSIDE OF THE [place] IN LAST 30 DAYS: No - Related Data Allergies/Adverse Reactions: No Known Allergies Allergy (Verified 11/23/17 14:32) Past Medical History - General Information source: Patient - Social History Smoking Status: Current Every Day Smoker Chew tobacco use (# tins/day): No Frequency of alcohol use: None Drug Abuse: None Family History: Reviewed & Not Pertinent Patient has suicidal ideation: No Patient has homicidal ideation: No Renal/ Medical History: Denies: Hx Peritoneal Dialysis Past Surgical History: Reports: Hx Cholecystectomy - Immunizations Hx Diphtheria, Pertussis, Tetanus Vaccination: Yes - unknown last Review of Systems - Review of Systems Notes: Constitutional: Negative for fever. HENT: Negative for sore throat. Eyes: Negative for visual changes. Cardiovascular: Negative for chest pain. Respiratory: Negative for shortness of breath. Gastrointestinal: Negative for abdominal pain, positive for nausea Genitourinary: Negative for dysuria. Musculoskeletal: Positive for flank pain Skin: Negative for rash. Neurological: Negative for headaches, weakness or numbness. 10 point ROS negative except as marked above and in HPI. Physical Exam - Vital signs Vitals: Temp Pulse Resp BP Pulse Ox 98.6 F 70 18 141/92 H 97 11/23/17 14:51 11/23/17 14:51 11/23/17 14:51 11/23/17 14:51 11/23/17 14:51 Interpretation: Normal Notes: PHYSICAL EXAMINATION: GENERAL: Well-appearing, well-nourished and in no acute distress. HEAD: Atraumatic, normocephalic. EYES: Pupils equal round and reactive to light, extraocular movements intact, sclera anicteric, conjunctiva are normal. ENT: nares patent, oropharynx clear without exudates. Moist mucous membranes. NECK: Normal range of motion, supple without lymphadenopathy LUNGS: Breath sounds clear to auscultation bilaterally and equal. No wheezes rales or rhonchi. HEART: Regular rate and rhythm without murmurs ABDOMEN: Soft, nontender, normoactive bowel sounds. No guarding, no rebound. No masses appreciated. Mild right CVA tenderness. EXTREMITIES: Normal range of motion, no pitting or edema. No cyanosis. NEUROLOGICAL: No focal neurological deficits. Moves all extremities spontaneously and on command. PSYCH: Normal mood, normal affect. SKIN: Warm, Dry, normal turgor, no rashes or lesions noted. Course - Re-evaluation Re-evalutation: 11/23/17 20:17 Presents with findings consistent with acute nephrolithiasis. Urinalysis does show hematuria. Laboratory otherwise unremarkable. Pain was able to be controlled here in the emergency department. Patient is tolerating oral intake. Clinical history is not consistent with an acute abdominal aneurysm or dissection, VA, or pulmonary embolus. Urinalysis does not show findings consistent with an infected stone. Vitals have remained within normal limits. Patient will be discharged with recommendations to follow-up with urology, pain medications, and return precautions. They are in agreement with this plan and verbalized indications return to emergency department. - Vital Signs Vital signs: Temp Pulse Resp BP Pulse Ox 97.5 F 49 L 18 117/71 100 11/23/17 20:08 11/23/17 20:08 11/23/17 20:08 11/23/17 20:08 11/23/17 20:08 - Laboratory Result Diagrams: 11/23/17 15:50 11/23/17 15:50 Laboratory results interpreted by me: 11/23/17 11/23/17 15:50 15:50 WBC 11.5 H Absolute Neutrophils 8.9 H Urine Protein >=500 H Urine Blood SMALL H - Diagnostic Test Radiology reviewed: Reports reviewed Discharge - Discharge Clinical Impression: Right kidney stone, Right flank pain, Nausea Condition: Good Disposition: HOME, SELF-CARE Additional Instructions: Your symptoms should improve over the course of the next one week. If you continue to have pain for greater than one week or your pain is not controlled with the pain medications that you have been sent home with you need to return to the emergency department. Please also return if you develop fever, persistent vomiting, or any other symptoms that are concerning to you. For your pain: Take ibuprofen 600 mg and acetaminophen 1000 mg every 6 hours together as needed for pain. If this does not control your pain you may take 15 mg of oral morphine every 4 hours as needed. Please be very careful about using the oral morphine and only use this for severe pain. You are also been sent home with a medication called Flomax to help pass the stone. You've been given Zofran to assist with nausea. Please follow-up with urology in the next 2 -3 days. Prescriptions: Morphine Sulfate [Morphine Ir 15 mg Tablet] 15 mg PO Q6HP PRN #12 tablet PRN Reason: Tamsulosin HCl [Flomax 0.4 mg Cap.sr] 0.4 mg PO DAILY #7 cap.sr.24h
== END 2017-11-23 20:40 | disposition home or self-care (01) ==
LOC: ER 14:23
DX: N13.2 Hydronephrosis with renal and ureteral calculous obstruction (principal); R11.0 Nausea; R31.9 Hematuria, unspecified; F17.200 Nicotine dependence, unspecified, uncomplicated; Z90.49 Acquired absence of other specified parts of digestive tract
CPT/HCPCS: 99284; 96372; 36415; 85025; 80053; 81001; 76380; J1885

== ENCOUNTER 2017-12-27 10:31 | Emergency (ER) | payer SELFPAY ==
[2017-12-27] MEDS ORDERED: FENTANYL CITRATE INJ/PF 100 MCG/2 ML AMPUL IV ONE (11:06)
[2017-12-27] MEDS ORDERED: ONDANSETRON HCL INJ/PF 4 MG/2 ML SDV IV ONE (11:06)
--- NOTE | 2017-12-27 11:09 | ER Document Report ---
ED Medical Screen (RME) - General Chief Complaint: Chest Wall Injury Stated Complaint: CHEST PAIN Time Seen by Provider: 12/27/17 11:03 Notes: 37 years old male fell off from the roof 2 days ago presents with pain over the lower sternum region, difficulty in breathing. Even the slightest movement of the chest wall giving rise to 5/5 of pain. Also has a bruise over the left hip with left iliac crest region showing discoloration of the skin. No head injury loss of consciousness. Currently has no neck pain upper back or lower back pain. Ambulatory. Denies any headache dizziness focal weaknesses. On examination-sharp tenderness were noted in the left lower half of the sternum. Also left iliac crest. TRAVEL OUTSIDE OF THE [place] IN LAST 30 DAYS: No - Related Data Allergies/Adverse Reactions: No Known Allergies Allergy (Verified 12/27/17 10:33) Past Medical History - Social History Chew tobacco use (# tins/day): No Frequency of alcohol use: None Drug Abuse: None Renal/ Medical History: Denies: Hx Peritoneal Dialysis Past Surgical History: Reports: Hx Cholecystectomy - Immunizations Hx Diphtheria, Pertussis, Tetanus Vaccination: Yes - unknown last History of Influenza Vaccine for 11/2016 - 04/2017 Season: No Physical Exam - Vital signs Vitals: Temp Pulse Resp BP Pulse Ox 97.9 F 70 18 123/75 70 L 12/27/17 10:40 12/27/17 10:40 12/27/17 10:40 12/27/17 10:40 12/27/17 10:40 Course - Vital Signs Vital signs: Temp Pulse Resp BP Pulse Ox 97.9 F 70 18 123/75 70 L 12/27/17 10:40 12/27/17 10:40 12/27/17 10:40 12/27/17 10:40 12/27/17 10:40
[2017-12-27 11:37] LABS: ABSOLUTE BASOPHILS # (AUTO) 0.1 10^3/uL (0.0-0.2); ABSOLUTE EOSINOPHILS # (AUTO) 0.2 10^3/uL (0.0-0.6); ABSOLUTE LYMPHOCYTES (AUTO) 1.7 10^3/uL (0.5-4.7); ABSOLUTE MONOCYTES (AUTO) 0.6 10^3/uL (0.1-1.4); ABSOLUTE NEUT (AUTO) 5.7 10^3/uL (1.7-8.2); BASOPHILS % (AUTO) 0.7 % (0-2); EOSINOPHILS % (AUTO) 2.8 % (0-6); HEMATOCRIT 45.6 % (37.9-51.0); HEMOGLOBIN 15.6 g/dL (13.5-17.0); LYMPHOCYTES % (AUTO) 20.4 % (13-45); MEAN CORPUSCULAR HEMOGLOBIN 31.7 pg (27.0-33.4); MEAN CORPUSCULAR HGB CONC 34.1 g/dL (32.0-36.0); MEAN CORPUSCULAR VOLUME 93 fl (80-97); MONOCYTES % (AUTO) 7.1 % (3-13); PLATELET COUNT 260 10^3/uL (150-450); RED BLOOD COUNT 4.91 10^6/uL (4.35-5.55); RED CELL DISTRIBUTION WIDTH 13.7 % (11.5-14.0); TOTAL CELLS COUNTED % (AUTO) 100 %; WHITE BLOOD COUNT 8.3 10^3/uL (4.0-10.5)
[2017-12-27 11:56] LABS: ALANINE AMINOTRANSFERASE 23 U/L (21-72); ALBUMIN 4.3 g/dL (3.5-5.0); ALKALINE PHOSPHATASE 96 U/L (38-126); ANION GAP 10 (5-19); APPEARANCE,URINE CLEAR; ASPARTATE AMINO TRANSFERASE 23 U/L (17-59); BILIRUBIN,DIRECT 0.2 mg/dL (0.0-0.4); BILIRUBIN,TOTAL 0.3 mg/dL (0.2-1.3); BILIRUBIN,URINE NEGATIVE (NEGATIVE); BLOOD UREA NITROGEN 18 mg/dL (7-20); CALCIUM 9.6 mg/dL (8.4-10.2); CARBON DIOXIDE 28 mmol/L (22-30); CHLORIDE 105 mmol/L (98-107); COLOR,URINE STRAW; GLUCOSE 60 mg/dL (75-110); GLUCOSE, URINE NEGATIVE (NEGATIVE); KETONES,URINE NEGATIVE (NEGATIVE); LEUKOCYTE ESTERASE,URINE NEGATIVE (NEGATIVE); NITRITE,URINE NEGATIVE (NEGATIVE); POTASSIUM 4.5 mmol/L (3.6-5.0); PROTEIN,URINE NEGATIVE (NEGATIVE); SODIUM 143.2 mmol/L (137-145); TOTAL PROTEIN 7.2 g/dL (6.3-8.2); URINE SPECIFIC GRAVITY 1.009; UROBILINOGEN,URINE NEGATIVE mg/dL (<2.0)
--- NOTE | 2017-12-27 12:08 | RADIOLOGY REPORT (SQ) ---
EXAM DESCRIPTION: CT CHEST WITH; CT ABD/PELVIS WITH IV ONLY COMPLETED DATE/TIME: 12/27/2017 11:50 am REASON FOR STUDY: trauma-pain. Chest abdomen pelvis Fall from roof. CONTRAST TYPE AND DOSE: contrast/concentration: Isovue 350.00 mg/ml; Total Contrast Delivered: 96.0 ml; Total Saline Delivered: 71.0 ml RENAL FUNCTION: None required. The patient is less than 50 years old. COMPARISON: CT abdomen pelvis, 11/23/2017 TECHNIQUE: CT scan of the chest performed using helical scanning technique with dynamic intravenous contrast injection. Images reviewed with lung, soft tissue and bone windows. Reconstructed coronal a nd sagittal MPR images reviewed. All images stored on PACS. All CT scanners at this facility use dose modulation, iterative reconstruction, and/or weight based d osing when appropriate to reduce radiation dose to as low as reasonably achievable (ALARA). [facility]: Dose Right [facility]: CareDose [facility]: Dose Right [facility]: Teradose 4D [facility]: [employer] RADIATION DOSE: CT Rad equipment meets quality standard of care and radiation dose reduction techniq ues were employed. CTDIvol: 8.2 - 11.5 mGy. DLP: 1200 mGy-cm.. LIMITATIONS: None. FINDINGS: AXILLAE: No adenopathy. CHEST WALL: No masses. No subcutaneous air. LUNGS: No nodules or masses. No pneumothorax. No infiltrates. PLEURA: No effusions. No calcifications. THYROID: No masses or significant asymmetry. HILAR AND MEDIASTINAL STRUCTURES: No identified masses or abnormal nodes. AORTA AND GREAT VESSELS: No aneurysm. No dissection. PULMONARY ARTERIES: No identified pulmonary emboli. Study not optimized for the pulmonary arteries. HEART: No pericardial effusion. HARDWARE AND LIFELINES: None. BONES: No significant finding. OTHER: No other significant finding. IMPRESSION: No CT evidence of acute traumatic injury to the chest, abdomen, or pelvis. COMPARISON: CT abdomen pelvis, 11/23/2017 RADIATION DOSE: CT Rad equipment meets quality standard of care and radiation dose reduction techniq ues were employed. CTDIvol: 8.2 - 11.5 mGy. DLP: 1200 mGy-cm.mGy. TECHNIQUE: CT scan of the abdomen and pelvis performed with intravenous and oral contrast using iona cruz scanning technique with dynamic intravenous contrast injection. Images reviewed with lung, soft tissue and bone windows. Reconstructed coronal and sagittal MPR images reviewed. Delayed images for evaluation of the urinary system also acquired and evaluated. All images stored on PACS. All CT scanners at this facility use dose modulation, iterative reconstruction, and/or weight based d osing when appropriate to reduce radiation dose to as low as reasonably achievable (ALARA). [facility]: Dose Right [facility]: SureCare [facility]: Dose Right [facility]: Teradose 4D [facility]: [employer] FINDINGS: LIVER: Normal size. No masses. No dilated ducts. SPLEEN: Normal size. No focal lesions. PANCREAS: No masses. No significant calcifications. No adjacent inflammation or peripancreatic flui d collections. Pancreatic duct not dilated. GALLBLADDER: Status post cholecystectomy. ADRENAL GLANDS: No significant masses or asymmetry. RIGHT KIDNEY AND URETER: No solid masses. No significant calcification. No hydronephrosis or hydroure ter. LEFT KIDNEY AND URETER: No solid masses. No significant calcification. No hydronephrosis or hydrouret er. AORTA AND VESSELS: No aneurysm. No dissection. Renal arteries, SMA, celiac without stenosis. RETROPERITONEUM: No retroperitoneal adenopathy, hemorrhage or masses. LARGE AND SMALL BOWEL: No dilatation. No masses. No wall thickening. APPENDIX: Normal. ABDOMINAL WALL: No hernia or masses. PERITONEAL CAVITY: No free air. No free fluid. No peritoneal implants or masses. PELVIS: No mass or free fluid. Normal bladder. BONES: No significant or acute findings. OTHER: No other significant finding. IMPRESSION: No CT evidence of acute traumatic injury to the chest, abdomen, or pelvis. TECHNICAL DOCUMENTATION: JOB ID: [id number] Quality ID # [id number]: Final reports with documentation of one or more dose reduction techniques (e.g., Au tomated exposure control, adjustment of the mA and/or kV according to patient size, use of iterative reconstruction technique) 2010 [employer]- All Rights Reserved Reading location - IP/workstation name: [email or web address]
--- NOTE | 2017-12-27 12:09 | RADIOLOGY REPORT (SQ) ---
EXAM DESCRIPTION: CT CHEST WITH; CT ABD/PELVIS WITH IV ONLY COMPLETED DATE/TIME: 12/27/2017 11:50 am REASON FOR STUDY: trauma-pain. Chest abdomen pelvis Fall from roof. CONTRAST TYPE AND DOSE: contrast/concentration: Isovue 350.00 mg/ml; Total Contrast Delivered: 96.0 ml; Total Saline Delivered: 71.0 ml RENAL FUNCTION: None required. The patient is less than 50 years old. COMPARISON: CT abdomen pelvis, 11/23/2017 TECHNIQUE: CT scan of the chest performed using helical scanning technique with dynamic intravenous contrast injection. Images reviewed with lung, soft tissue and bone windows. Reconstructed coronal a nd sagittal MPR images reviewed. All images stored on PACS. All CT scanners at this facility use dose modulation, iterative reconstruction, and/or weight based d osing when appropriate to reduce radiation dose to as low as reasonably achievable (ALARA). [facility]: Dose Right [facility]: CareDose [facility]: Dose Right [facility]: Teradose 4D [facility]: [employer] RADIATION DOSE: CT Rad equipment meets quality standard of care and radiation dose reduction techniq ues were employed. CTDIvol: 8.2 - 11.5 mGy. DLP: 1200 mGy-cm.. LIMITATIONS: None. FINDINGS: AXILLAE: No adenopathy. CHEST WALL: No masses. No subcutaneous air. LUNGS: No nodules or masses. No pneumothorax. No infiltrates. PLEURA: No effusions. No calcifications. THYROID: No masses or significant asymmetry. HILAR AND MEDIASTINAL STRUCTURES: No identified masses or abnormal nodes. AORTA AND GREAT VESSELS: No aneurysm. No dissection. PULMONARY ARTERIES: No identified pulmonary emboli. Study not optimized for the pulmonary arteries. HEART: No pericardial effusion. HARDWARE AND LIFELINES: None. BONES: No significant finding. OTHER: No other significant finding. IMPRESSION: No CT evidence of acute traumatic injury to the chest, abdomen, or pelvis. COMPARISON: CT abdomen pelvis, 11/23/2017 RADIATION DOSE: CT Rad equipment meets quality standard of care and radiation dose reduction techniq ues were employed. CTDIvol: 8.2 - 11.5 mGy. DLP: 1200 mGy-cm.mGy. TECHNIQUE: CT scan of the abdomen and pelvis performed with intravenous and oral contrast using iona cruz scanning technique with dynamic intravenous contrast injection. Images reviewed with lung, soft tissue and bone windows. Reconstructed coronal and sagittal MPR images reviewed. Delayed images for evaluation of the urinary system also acquired and evaluated. All images stored on PACS. All CT scanners at this facility use dose modulation, iterative reconstruction, and/or weight based d osing when appropriate to reduce radiation dose to as low as reasonably achievable (ALARA). [facility]: Dose Right [facility]: SureCare [facility]: Dose Right [facility]: Teradose 4D [facility]: [employer] FINDINGS: LIVER: Normal size. No masses. No dilated ducts. SPLEEN: Normal size. No focal lesions. PANCREAS: No masses. No significant calcifications. No adjacent inflammation or peripancreatic flui d collections. Pancreatic duct not dilated. GALLBLADDER: Status post cholecystectomy. ADRENAL GLANDS: No significant masses or asymmetry. RIGHT KIDNEY AND URETER: No solid masses. No significant calcification. No hydronephrosis or hydroure ter. LEFT KIDNEY AND URETER: No solid masses. No significant calcification. No hydronephrosis or hydrouret er. AORTA AND VESSELS: No aneurysm. No dissection. Renal arteries, SMA, celiac without stenosis. RETROPERITONEUM: No retroperitoneal adenopathy, hemorrhage or masses. LARGE AND SMALL BOWEL: No dilatation. No masses. No wall thickening. APPENDIX: Normal. ABDOMINAL WALL: No hernia or masses. PERITONEAL CAVITY: No free air. No free fluid. No peritoneal implants or masses. PELVIS: No mass or free fluid. Normal bladder. BONES: No significant or acute findings. OTHER: No other significant finding. IMPRESSION: No CT evidence of acute traumatic injury to the chest, abdomen, or pelvis. TECHNICAL DOCUMENTATION: JOB ID: [id number] Quality ID # [id number]: Final reports with documentation of one or more dose reduction techniques (e.g., Au tomated exposure control, adjustment of the mA and/or kV according to patient size, use of iterative reconstruction technique) 2010 [employer]- All Rights Reserved Reading location - IP/workstation name: [email or web address]
[2017-12-27] MEDS ORDERED: HYDROMORPHONE HCL INJ/PF 2 MG/ML AMPULE IV ONE (12:19)
--- NOTE | 2017-12-27 13:02 | ER Document Report ---
ED Fall - General Chief Complaint: Chest Wall Injury Stated Complaint: CHEST PAIN Time Seen by Provider: 12/27/17 11:03 Notes: Patient fell 2 days ago from about 14 foot roof landing on a stack of shingles. He hit the corner of the stack of shingles with his sternum and anterior chest. Patient says he is having more difficulty breathing and is extremely painful to take any breaths. Also hit on the lateral aspect of the left hip, the patient is ambulatory without any difficulty. Denies head injury or neck injury or loss of consciousness or any neurologic deficits. Denies any abdominal pains. TRAVEL OUTSIDE OF THE [place] IN LAST 30 DAYS: No - Related data Allergies/Adverse Reactions: No Known Allergies Allergy (Verified 12/27/17 10:33) Past Medical History - Social History Smoking Status: Current Every Day Smoker Chew tobacco use (# tins/day): No Frequency of alcohol use: None Drug Abuse: None Family History: Reviewed & Not Pertinent Patient has suicidal ideation: No Patient has homicidal ideation: No Past Surgical History: Reports: Hx Cholecystectomy - Immunizations Hx Diphtheria, Pertussis, Tetanus Vaccination: Yes - unknown last Review of Systems - Review of Systems Notes: REVIEW OF SYSTEMS: CONSTITUTIONAL : Denies fever. EENT: Denies eye, ear, nose or mouth or throat pain or other symptoms. CARDIOVASCULAR: See HPI. RESPIRATORY: Denies cough, chest congestion, or shortness of breath. Painful in the left anterior chest for the patient to take a deep breath or to move. GASTROINTESTINAL: Denies abdominal pain or nausea, vomiting, or diarrhea. GENITOURINARY: Denies difficulty or painful urinating, urinary frequency, blood in urine. MUSCULOSKELETAL: Denies back or neck pain. Denies joint pain or swelling. Also hit his left superior lateral iliac crest in the fall which is discolored from bruising. Minimally tender and no functional limitations. SKIN: Denies rash or skin lesions. NEUROLOGICAL: Denies LOC or altered mental status. Denies headache. Denies sensory loss or motor deficits. ALL OTHER SYSTEMS REVIEWED AND NEGATIVE. Physical Exam - Vital signs Vitals: Temp Pulse Resp BP Pulse Ox 97.9 F 70 18 123/75 70 L 12/27/17 10:40 12/27/17 10:40 12/27/17 10:40 12/27/17 10:40 12/27/17 10:40 Interpretation: Normal Notes: PHYSICAL EXAMINATION: GENERAL: Well-appearing, in no acute distress. Ambulatory. Appears to be in pain when moving. HEAD: Atraumatic, normocephalic. EYES: Pupils equal round and reactive to light, extraocular movements intact. ENT: oropharynx clear without exudates. Moist mucous membranes. NECK: Normal range of motion, supple. LUNGS: Breath sounds clear and equal bilaterally. Tender left anterior chest wall, midportion, and tender along the left sternal border. No subcutaneous air palpated. HEART: Regular rate and rhythm without murmurs. ABDOMEN: Soft, nontender. No guarding or rebound. No masses. No left upper quadrant tenderness. BACK: No tenderness throughout entire back. EXTREMITIES: Normal range of motion without pain. Some mild bruising of the superior left iliac crest with only minimal tenderness. No limitation of movement. NEUROLOGICAL: Normal speech, normal gait. Normal sensory, motor, and reflex exams. Awake, alert, and oriented x3. Cranial nerves normal. PSYCH: Normal mood, normal affect. SKIN: Warm, dry, no rashes. Course - Re-evaluation Re-evalutation: 12/27/17 13:10 Lab studies are all normal. - Vital Signs Vital signs: Temp Pulse Resp BP Pulse Ox 97.9 F 70 18 123/75 70 L 12/27/17 10:40 12/27/17 10:40 12/27/17 10:40 12/27/17 10:40 12/27/17 10:40 - Laboratory Result Diagrams: 12/27/17 11:25 12/27/17 11:25 Laboratory results interpreted by me: 12/27/17 11:25 Glucose 60 L - Diagnostic Test Radiology reviewed: Image reviewed, Reports reviewed - CT scan shows fractures of the left fourth and fifth ribs. Otherwise, CT of the chest is normal. CT of the abdomen and pelvis is also normal. - EKG Interpretation by Me EKG shows normal: Sinus rhythm Rate: Normal Rhythm: NSR Discharge - Discharge Clinical Impression: Fall, Fracture, ribs Condition: Stable Disposition: HOME, SELF-CARE Additional Instructions: CONTUSION Left Hip: Your injury has resulted in a contusion -- a crushing of the deep tissues. No injury to important structures was detected during the physician's exam. Contusions vary in the amount of pain they cause, and in the length of time required for healing. Typically, the area will become bruised, and will remain painful to touch for two or three weeks. However, most patients are back to working and playing within a few days. After the initial period of rest and cold-packs, your symptoms (together with the doctor's recommendations) will determine how rapidly you can get back to full activity. Usually this means "do what feels okay, but don't do things that hurt." If re-examination was recommended, it's important to follow up as instructed. Call the doctor or return any time if pain increases, if swelling becomes severe, if you develop numbness or weakness in an injured extremity, or if any other alarming symptoms occur. Rib Injuries and Fractures You have been diagnosed as having either bruised or broken ribs. These two injuries are treated in the same way. It will usually take four to six weeks for these injured ribs to heal. Sometimes, rib belts or anesthetic injections of the chest wall help reduce the pain. If you are using a rib belt, you should cough or take a deep breath at least every hour or two to prevent lung complications. You should not engage in any strenuous physical activity until released by your physician. The usual rule is "if it hurts, don't do it." Rib fractures can lead to serious lung complications including lung collapse, hemorrhage, and pneumonia. You should call the physician or return at once if any of the following occur: (1) Fever or chills. (2) Persistent cough, coughing up blood, or shortness of breath. (3) Increasing pain. (4) Weakness, lightheadedness, or fainting. PAIN MEDICATION INJECTION: You have received an injection of a pain medication. You should experience significant pain relief within 45 minutes. If this medication is a narcotic, it will impair your judgement, slow your reaction time and make you sleepy (as well as relieve your pain). Narcotics also can cause nausea. You should not drive, work with machinery, or perform any task requiring mental alertness until all effects of the medication are gone -- six to eight hours. Do not take any alcohol, or sedatives, and do not take any other medication without checking with your physician. ORAL NARCOTIC MEDICATION: You have been given a prescription for pain control. This medication is a narcotic. It's best taken with food, as nausea can result if taken on an empty stomach. Don't operate machinery or drive within six hours of taking this medication. Do not combine this medicine with alcohol, or with any medication which can cause sedation (such as cold tablets or sleeping pills) unless you get permission from the physician. Narcotics tend to cause constipation. If possible, drink plenty of fluids and eat a diet high in fiber and fruits. FOLLOW-UP CARE: If you have been referred to a physician for follow-up care, call the physician s office for an appointment as you were instructed or within the next two days. If you experience worsening or a significant change in your symptoms, notify the physician immediately or return to the Emergency Department at any time for re-evaluation. Prescriptions: Hydromorphone HCl [Dilaudid 2 mg Tablet] 2 mg PO Q4HP PRN #15 tablet PRN Reason:
[2017-12-27 13:13] VITALS: BP 114/74
--- NOTE | 2017-12-28 10:41 | EKG REPORT ---
SEVERITY:- NORMAL ECG - SINUS RHYTHM : Confirmed by: Manju Gaston 28-Dec-2017 10:40:39
== END 2017-12-27 13:13 | disposition home or self-care (01) ==
LOC: ER 10:31
DX: S22.42XA Multiple fractures of ribs, left side, initial encounter for closed fracture (principal); M25.552 Pain in left hip; W13.2XXA Fall from, out of or through roof, initial encounter; F17.200 Nicotine dependence, unspecified, uncomplicated
CPT/HCPCS: 93005; 99284; 96374; 96375; 36415; 85025; 80053; 81001; 84484; 71260; 74177; 93010; J3010; J1170; J2405

== ENCOUNTER 2018-04-08 18:51 | Emergency (ER) | payer SELFPAY ==
[2018-04-08] MEDS ORDERED: KETOROLAC TROMETHAMINE 60 MG/2 ML SDV IM ONE (22:28)
[2018-04-08] MEDS ORDERED: ONDANSETRON 4 MG TAB.RAPDIS PO ONE (22:29)
--- NOTE | 2018-04-08 22:31 | ER Document Report ---
ED Medical Screen (RME) - General Chief Complaint: Flank Pain Stated Complaint: URINE PROBLEMS Time Seen by Provider: 04/08/18 22:28 Notes: 38-year-old male reporting blood in urine, urinary hesitancy, vague pain in his lower abdomen, pain in the right flank. Denies vomiting, fever. He does have a history of kidney stones. TRAVEL OUTSIDE OF THE [place] IN LAST 30 DAYS: No - Related Data Allergies/Adverse Reactions: No Known Allergies Allergy (Verified 12/27/17 10:33) Past Medical History Renal/ Medical History: Denies: Hx Peritoneal Dialysis Past Surgical History: Reports: Hx Cholecystectomy - Immunizations Hx Diphtheria, Pertussis, Tetanus Vaccination: Yes - unknown last History of Influenza Vaccine for 11/2016 - 04/2017 Season: No Physical Exam - Vital signs Vitals: Temp Pulse Resp BP Pulse Ox 97.5 F 79 18 138/68 H 98 04/08/18 18:58 04/08/18 18:58 04/08/18 18:58 04/08/18 18:58 04/08/18 18:58 - General General appearance: Appears well In distress: Mild - Abdominal Tenderness: Nontender Course - Re-evaluation Re-evalutation: Patient not in severe pain, previous imaging noted to only have very small stones, no imaging ordered as a result. Will check urine and labs and medicate. I have greeted and performed a rapid initial assessment of this patient. A comprehensive ED assessment and evaluation of the patient, analysis of test results and completion of the medical decision making process will be conducted by additional ED providers. - Vital Signs Vital signs: Temp Pulse Resp BP Pulse Ox 97.5 F 79 18 138/68 H 98 04/08/18 18:58 04/08/18 18:58 04/08/18 18:58 04/08/18 18:58 04/08/18 18:58
[2018-04-08 23:11] LABS: ABSOLUTE EOSINOPHILS # (AUTO) 0.2 10^3/uL (0.0-0.6); ABSOLUTE LYMPHOCYTES (AUTO) 1.8 10^3/uL (0.5-4.7); ABSOLUTE MONOCYTES (AUTO) 0.6 10^3/uL (0.1-1.4); ABSOLUTE NEUT (AUTO) 6.9 10^3/uL (1.7-8.2); BASOPHILS % (AUTO) 0.4 % (0-2); EOSINOPHILS % (AUTO) 2.1 % (0-6); HEMATOCRIT 44.8 % (37.9-51.0); HEMOGLOBIN 15.3 g/dL (13.5-17.0); LYMPHOCYTES % (AUTO) 18.6 % (13-45); MEAN CORPUSCULAR HEMOGLOBIN 31.7 pg (27.0-33.4); MEAN CORPUSCULAR HGB CONC 34.2 g/dL (32.0-36.0); MEAN CORPUSCULAR VOLUME 93 fl (80-97); MONOCYTES % (AUTO) 6.5 % (3-13); PLATELET COUNT 346 10^3/uL (150-450); RED BLOOD COUNT 4.83 10^6/uL (4.35-5.55); RED CELL DISTRIBUTION WIDTH 13.4 % (11.5-14.0); SEGMENTED NEUTROPHILS % (AUTO) 72.4 % (42-78); TOTAL CELLS COUNTED % (AUTO) 100 %; WHITE BLOOD COUNT 9.5 10^3/uL (4.0-10.5)
[2018-04-08 23:24] LABS: ALANINE AMINOTRANSFERASE 23 U/L (21-72); ALBUMIN 4.9 g/dL (3.5-5.0); ALKALINE PHOSPHATASE 111 U/L (38-126); ANION GAP 9 (5-19); ASPARTATE AMINO TRANSFERASE 21 U/L (17-59); BILIRUBIN,DIRECT 0.3 mg/dL (0.0-0.4); BILIRUBIN,TOTAL 0.6 mg/dL (0.2-1.3); BLOOD UREA NITROGEN 25 mg/dL (7-20); CALCIUM 10.1 mg/dL (8.4-10.2); CARBON DIOXIDE 31 mmol/L (22-30); CHLORIDE 102 mmol/L (98-107); GLUCOSE 89 mg/dL (75-110); POTASSIUM 4.9 mmol/L (3.6-5.0); SODIUM 142.3 mmol/L (137-145)
[2018-04-08 23:31] LABS: APPEARANCE,URINE CLOUDY; BILIRUBIN,URINE NEGATIVE (NEGATIVE); COLOR,URINE YELLOW; GLUCOSE, URINE NEGATIVE (NEGATIVE); KETONES,URINE NEGATIVE (NEGATIVE); LEUKOCYTE ESTERASE,URINE LARGE (NEGATIVE); NITRITE,URINE NEGATIVE (NEGATIVE); PROTEIN,URINE 30 mg/dL (NEGATIVE); URINE SPECIFIC GRAVITY 1.017; UROBILINOGEN,URINE NEGATIVE mg/dL (<2.0)
[2018-04-09 00:57] VITALS: BP 111/76
== END 2018-04-09 01:00 | disposition left against medical advice (07) ==
LOC: ER 18:51
DX: R10.9 Unspecified abdominal pain (principal); Z90.49 Acquired absence of other specified parts of digestive tract
CPT/HCPCS: 99284; 96372; 36415; 85025; 80053; 81001; J1885; S0119

== ENCOUNTER 2019-09-01 18:43 | Emergency (ER) | payer OTHER ==
[2019-09-01] MEDS ORDERED: HYDROCODONE/ACETAMINOPHEN 5-325 MG TABLET PO ONE (20:07)
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
--- NOTE | 2019-09-01 20:54 | RADIOLOGY REPORT (SQ) ---
EXAM DESCRIPTION: X-ray, three views of the right shoulder CLINICAL HISTORY: 39 years Male, injury resulting in pain. COMPARISON: None. FINDINGS: The glenohumeral joint is located. No fracture, subluxation or dislocation. Scapula is intact. The clavicles intact. Visualized portion of the right chest is unremarkable. Soft tissues are unremarkable. IMPRESSION: No acute process.
--- NOTE | 2019-09-01 20:58 | RADIOLOGY REPORT (SQ) ---
EXAM DESCRIPTION: [facility]: XR RIBS UNILATERAL WITH CHEST Views: 3, AP chest and 2 additional views of right ribs CLINICAL HISTORY: 39 years Male; injury; COMPARISON: None. FINDINGS: Chest single view: Lungs are clear, with no focal infiltrate, pneumothorax, or pleural effusion. Mediastinum is within normal limits for this positioning. Ribs: Visualized ribs are intact, with no displaced fractures. No suspicious lytic or blastic rib lesions. No subpleural thickening. Right upper quadrant surgical clips are noted. IMPRESSION: 1. No acute findings.
[2019-09-01 21:34] VITALS: BP 120/72
== END 2019-09-01 22:29 | disposition home or self-care (01) ==
LOC: ER 18:43
DX: S20.211A Contusion of right front wall of thorax, initial encounter (principal); R07.81 Pleurodynia; M25.511 Pain in right shoulder; V87.7XXA Person injured in collision between other specified motor vehicles (traffic), initial encounter
CPT/HCPCS: 99283